=== PATIENT | male | born 1955 | race Caucasian/White ===

== ENCOUNTER 2018-07-15 19:08 | Emergency (ER) | payer OTHER ==
[~2018-07-15] VITALS: Ht 167.6 cm; Wt 117.1 kg
[~2018-07-15 19:08] MED LIST: CHOL20001 PO; FERR-15 PO; METF500T2 PO; RAMI5CAP1 PO; RANI-287 PO; [UNRECOGNIZED DRUG - CODE] PO
[2018-07-15 19:11] VITALS: BP 136/90
[2018-07-15] MEDS ORDERED: AMLO5TAB PO (19:18)
[2018-07-15] MEDS ORDERED: RAMI5CAP1 PO (19:18)
[2018-07-15] MEDS ORDERED: METPCK PO (19:18)
--- NOTE | 2018-07-15 19:33 | NUR ---
PT PRESNETS TO ED C/O FREQUENT URINATION, DYSURIA, AND LOWER BACK PAIN X 5 DAYS. SEEN PMD, ON KEFLEX SINCE TUESDAY WITH PERSISTING SYMPTOMS. NO BLADDER DISTENTION UPON ASSESSMENT. PT REPORTS ALLERGIES TO SULFA, MACROBID, LEVAQUIN, AND CIPRO AND REPORTS ONLY BEING ABLE TO TAKE KEFELX. PT PLACED IN BED. PENDING MD MONTGOMERY.
[2018-07-15 20:18] LABS: APPEARANCE,URINE CLEAR (CLEAR); BILIRUBIN,URINE NEGATIVE (NEGATIVE); BLOOD, URINE 2+ (NEGATIVE); COLOR,URINE YELLOW (YELLOW); LEUKOCYTE ESTERASE ,URINE NEGATIVE (NEGATIVE); NITRITE, URINE NEGATIVE (NEGATIVE); UGLUCOSE NEGATIVE (NEGATIVE)
[2018-07-15 20:22] LABS: RBC,URINE 3-10 (FEW) /HPF (0-5); WBC,URINE 0-5 (RARE) /HPF (0-5)
[2018-07-15] MEDS ORDERED: KETOROLAC 30 MG/ML VIAL IM ONE (20:50)
[2018-07-15] MEDS ORDERED: cefTRIAXone 1,000 MG in LIDOCAINE MPF 1% - 5 mL VIAL 2.1 ML IM ONE (20:50)
[2018-07-15] MEDS ORDERED: cefTRIAXone 1,000 MG VIAL ONE (20:57)
[2018-07-15] MEDS ORDERED: LIDOCAINE/EPI 1% 1:100000 20 ML VIAL INJ ONE (21:08)
[2018-07-15] MEDS ORDERED: LIDOCAINE MPF 1% - 5 mL VIAL 5 ML ONE (21:15)
[2018-07-15 21:35] VITALS: BP 132/87
--- NOTE | 2018-07-15 21:36 | NUR ---
Patient discharged with v/s stable. Written and verbal after care instructions given and explained. Patient verbalized understanding. Ambulatory with steady gait. All questions addressed prior to discharge. Advised to follow up with PMD.
== END 2018-07-15 21:35 | disposition home or self-care (01) ==
LOC: MED 19:08
DX: R35.0 Frequency of micturition (principal); M54.5 Low back pain; D72.829 Elevated white blood cell count, unspecified; E11.9 Type 2 diabetes mellitus without complications; I10 Essential (primary) hypertension; K21.9 Gastro-esophageal reflux disease without esophagitis; Z85.038 Personal history of other malignant neoplasm of large intestine; Z85.46 Personal history of malignant neoplasm of prostate; Z79.84 Long term (current) use of oral hypoglycemic drugs; Z79.899 Other long term (current) drug therapy
CPT/HCPCS: 81001; 82948; 87086; 96372; 99284; J0696; J1885; J2001

== ENCOUNTER 2018-07-20 18:29 | Emergency (ER) | payer OTHER ==
[~2018-07-20] VITALS: Ht 167.6 cm; Wt 83.9 kg
[~2018-07-20 18:29] MED LIST changes: +AMLO5TAB PO; -CHOL20001 PO; -FERR-15 PO; +METPCK PO; -RANI-287 PO; -[UNRECOGNIZED DRUG - CODE] PO
[2018-07-20 18:34] VITALS: BP 118/59
--- NOTE | 2018-07-20 18:45 | NUR ---
bib self with nasal congestion x 4 days. patient denies any cough, fevers, or throat pain. VSS; PATIENT POSITIONED FOR COMFORT; HOB ELEVATED; BEDRAILS UP X1; BED DOWN. ER MD MADE AWARE OF PT STATUS.
[2018-07-20] MEDS ORDERED: DEXAMETHASONE 10 MG/ML VIAL IM ONE (20:05)
[2018-07-20] MEDS ORDERED: cefTRIAXone 1,000 MG in LIDOCAINE MPF 1% - 5 mL VIAL 2.1 ML IM ONE (20:05)
[2018-07-20 20:34] VITALS: BP 118/59
--- NOTE | 2018-07-20 20:34 | NUR ---
Patient discharged with v/s stable. Written and verbal after care instructions given and explained. Patient alert, oriented and verbalized understanding of instructions. Ambulatory with steady gait. All questions addressed prior to discharge. ID band removed. Patient advised to follow up with PMD. Rx of Cefdinir and Mucinex given. Patient educated on indication of medication including possible reaction and side effects. Opportunity to ask questions provided and answered.
== END 2018-07-20 20:34 | disposition home or self-care (01) ==
LOC: MED 18:29
DX: R09.89 Other specified symptoms and signs involving the circulatory and respiratory systems (principal); E11.9 Type 2 diabetes mellitus without complications; K21.9 Gastro-esophageal reflux disease without esophagitis; I10 Essential (primary) hypertension; Z85.038 Personal history of other malignant neoplasm of large intestine; Z79.899 Other long term (current) drug therapy; Z85.46 Personal history of malignant neoplasm of prostate; Z79.84 Long term (current) use of oral hypoglycemic drugs
CPT/HCPCS: 96372; 99284; J0696; J1100; J2001

== ENCOUNTER 2018-07-27 14:10 | Emergency (ER) | payer OTHER ==
[~2018-07-27] VITALS: Ht 165.1 cm; Wt 114.8 kg
[2018-07-27 14:19] VITALS: BP 111/69
[2018-07-27] MEDS ORDERED: KETOROLAC 60 MG/2 ML VIAL IM ONE (16:25)
[2018-07-27 16:43] VITALS: BP 111/69
== END 2018-07-27 16:50 | disposition home or self-care (01) ==
LOC: MED 14:10
DX: J30.9 Allergic rhinitis, unspecified (principal); M54.9 Dorsalgia, unspecified; E11.9 Type 2 diabetes mellitus without complications; K21.9 Gastro-esophageal reflux disease without esophagitis; I10 Essential (primary) hypertension; Z85.46 Personal history of malignant neoplasm of prostate; Z85.038 Personal history of other malignant neoplasm of large intestine; Z88.2 Allergy status to sulfonamides; Z79.899 Other long term (current) drug therapy
CPT/HCPCS: 82948; 96372; 99283; J1885; 81002

== ENCOUNTER 2023-05-06 20:21 | Emergency (ER) | payer OTHER ==
[~2023-05-06] VITALS: Ht 170.2 cm; Wt 109.3 kg
[~2023-05-06 20:21] MED LIST changes: +METF-1139 PO; -METF500T2 PO; +RAMI5CAP PO; -RAMI5CAP1 PO
[2023-05-06 20:25] VITALS: BP 121/73; PULSE 78; RESP 17; TEMP 98.3; O2SAT 96
--- NOTE | 2023-05-06 20:28 | NUR ---
TO LOBBY A/W BED AMBULATORY
--- NOTE | 2023-05-06 21:19 | NUR ---
PT AMBULATED TO BED 12, CALL LIGHT W/IN REACH.
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
[2023-05-06 22:25] VITALS: BP 121/73; PULSE 78; RESP 17; TEMP 98.3; O2SAT 96
== END 2023-05-06 22:25 | disposition home or self-care (01) ==
LOC: MED 20:21
DX: S09.90XA Unspecified injury of head, initial encounter (principal); G93.0 Cerebral cysts; E11.9 Type 2 diabetes mellitus without complications; I10 Essential (primary) hypertension; K21.9 Gastro-esophageal reflux disease without esophagitis; Z85.038 Personal history of other malignant neoplasm of large intestine; Z85.46 Personal history of malignant neoplasm of prostate; Z79.899 Other long term (current) drug therapy; Z79.84 Long term (current) use of oral hypoglycemic drugs; W18.2XXA Fall in (into) shower or empty bathtub, initial encounter; Y93.89 Activity, other specified; Y92.89 Other specified places as the place of occurrence of the external cause; Y99.8 Other external cause status
CPT/HCPCS: 70450; 99284

== ENCOUNTER 2023-07-29 19:15 | Emergency (ER) | payer MEDICARE ==
[~2023-07-29] VITALS: Ht 170.2 cm; Wt 111.1 kg
[2023-07-29 19:25] VITALS: BP 141/82; PULSE 83; RESP 16; TEMP 97.6; O2SAT 96
[2023-07-29] MEDS ORDERED: LIDOCAINE 5% 1 EA PATCH TP ONE ×2 (20:15→21:24)
[2023-07-29] MEDS ORDERED: KETOROLAC 30 MG/ML VIAL IM ONE (20:15)
[2023-07-29] MEDS ORDERED: KETOROLAC 30 MG/ML VIAL ONE (21:22)
[2023-07-29] MEDS ORDERED: LID5T TP (21:46)
[2023-07-29] MEDS ORDERED: IBUP-2213 PO (21:46)
[2023-07-29] MEDS ORDERED: CYCL-711 PO (21:46)
[2023-07-29 22:01] VITALS: PULSE 62; RESP 16; TEMP 98.2; O2SAT 97
== END 2023-07-29 22:01 | disposition home or self-care (01) ==
LOC: MED 19:15
DX: S33.5XXA Sprain of ligaments of lumbar spine, initial encounter (principal); E11.9 Type 2 diabetes mellitus without complications; K21.9 Gastro-esophageal reflux disease without esophagitis; I10 Essential (primary) hypertension; Z79.899 Other long term (current) drug therapy; Z79.1 Long term (current) use of non-steroidal anti-inflammatories (NSAID); X58.XXXA Exposure to other specified factors, initial encounter; Y92.89 Other specified places as the place of occurrence of the external cause; Y93.89 Activity, other specified; Y99.8 Other external cause status
CPT/HCPCS: 96372; 99283; J1885

== ENCOUNTER 2023-10-17 13:05 | Emergency (ER) | payer MEDICARE ==
[~2023-10-17] VITALS: Ht 167.6 cm; Wt 99.8 kg
[~2023-10-17 13:05] MED LIST changes: +CYCL-711 PO; +IBUP-2213 PO; +LID5T TP
[2023-10-17 13:35] VITALS: BP 143/78; PULSE 83; RESP 20; TEMP 98; O2SAT 98
[2023-10-17 16:14] LABS: BASOPHILS % (AUTO) 0.4 % (0.0-2.0); EOSINOPHILS # (AUTO) 0.1 K/uL (0-0.4); EOSINOPHILS % (AUTO) 1.9 % (0.0-4.0); HEMOGLOBIN 12.7 g/dL (12.0-18.0); LYMPHOCYTES # (AUTO) 1.4 K/uL (2.0-11.5); MEAN CORPUSCULAR HEMOGLOBIN 28 pg (27-31); MEAN CORPUSCULAR HGB CONC 34 g/dL (33-37); MEAN CORPUSCULAR VOLUME 82.5 fL (80-94); MONOCYTES # (AUTO) 0.6 K/uL (0.8-1.0); MONOCYTES % (AUTO) 7.4 % (1.7-9.3); NEUTROPHILS # (AUTO) 5.7 K/uL (1.8-7.7); NEUTROPHILS % (AUTO) 72.3 % (42.2-75.2); PLATELET COUNT (AUTO) 227 K/uL (140-450); RED BLOOD CELL COUNT(AUTO) 4.61 MIL/uL (4.20-6.10); RED CELL DISTRIBUTION WIDTH 16.1 % (11.6-13.7); WHITE BLOOD COUNT (AUTO) 7.9 K/uL (4.8-10.8)
[2023-10-17 16:34] LABS: ALBUMIN 3.6 g/dL (3.4-5.0); ANION GAP 12.9 (8-16); CALCIUM 9.1 mg/dL (8.5-10.1); CREATININE 0.9 mg/dL (0.6-1.3); MAGNESIUM 1.8 mg/dL (1.8-2.4); POTASSIUM 3.9 mmol/L (3.5-5.1); TOTAL BILIRUBIN 0.4 mg/dL (0.0-1.0); TOTAL PROTEIN, SERUM 8.3 g/dL (6.4-8.2)
[2023-10-17 16:35] LABS: APPEARANCE,URINE CLEAR (CLEAR); BILIRUBIN,URINE NEGATIVE (NEGATIVE); BLOOD, URINE 1+ (NEGATIVE); COLOR,URINE YELLOW (YELLOW); LEUKOCYTE ESTERASE ,URINE NEGATIVE (NEGATIVE); NITRITE, URINE NEGATIVE (NEGATIVE); PROTEIN,URINE NEGATIVE (NEGATIVE); UGLUCOSE NEGATIVE (NEGATIVE); UROBILINOGEN,URINE 0.2 EU/dL (0.2 - 1)
[2023-10-17] MEDS ORDERED: METR-520 PO (18:52)
== END 2023-10-17 19:16 | disposition home or self-care (01) ==
LOC: MED 13:05
DX: K29.70 Gastritis, unspecified, without bleeding (principal); E11.9 Type 2 diabetes mellitus without complications; K21.9 Gastro-esophageal reflux disease without esophagitis; I10 Essential (primary) hypertension; Z98.890 Other specified postprocedural states; Z79.899 Other long term (current) drug therapy; Z79.1 Long term (current) use of non-steroidal anti-inflammatories (NSAID)
CPT/HCPCS: 36415; 80053; 81003; 83690; 83735; 85025; 93005; 99284

== ENCOUNTER 2023-12-20 15:40 | Emergency (ER) | payer MEDICARE ==
[~2023-12-20] VITALS: Ht 170.2 cm; Wt 109.8 kg
[~2023-12-20 15:40] MED LIST changes: +METR-520 PO
[2023-12-20 15:55] VITALS: BP 119/77; PULSE 74; RESP 18; TEMP 97.7; O2SAT 95
[2023-12-20 19:15] LABS: BASOPHILS % (AUTO) 0.4 % (0.0-2.0); EOSINOPHILS # (AUTO) 0.1 K/uL (0-0.4); EOSINOPHILS % (AUTO) 1.9 % (0.0-4.0); HEMATOCRIT 39.4 % (36-52); HEMOGLOBIN 13.3 g/dL (12.0-18.0); LYMPHOCYTES # (AUTO) 1.8 K/uL (2.0-11.5); LYMPHOCYTES % (AUTO) 25.3 % (20.5-51.1); MEAN CORPUSCULAR HEMOGLOBIN 27 pg (27-31); MEAN CORPUSCULAR HGB CONC 34 g/dL (33-37); MEAN CORPUSCULAR VOLUME 80.4 fL (80-94); MONOCYTES # (AUTO) 0.6 K/uL (0.8-1.0); NEUTROPHILS # (AUTO) 4.5 K/uL (1.8-7.7); NEUTROPHILS % (AUTO) 63.4 % (42.2-75.2); PLATELET COUNT (AUTO) 187 K/uL (140-450); RED CELL DISTRIBUTION WIDTH 15.1 % (11.6-13.7); WHITE BLOOD COUNT (AUTO) 7.1 K/uL (4.8-10.8)
[2023-12-20 19:33] LABS: ANION GAP 12.3 (8-16); CARBON DIOXIDE 25.6 mmol/L (21-32); CREATININE 0.8 mg/dL (0.6-1.3); POTASSIUM 3.9 mmol/L (3.5-5.1)
[2023-12-20 19:35] LABS: ALBUMIN 3.6 g/dL (3.4-5.0); BILIRUBIN,DIRECT 0.1 mg/dL (0.0-0.3); TOTAL BILIRUBIN 0.3 mg/dL (0.0-1.0); TOTAL PROTEIN, SERUM 6.8 g/dL (6.4-8.2)
[2023-12-20 19:40] LABS: APPEARANCE,URINE CLEAR (CLEAR); BILIRUBIN,URINE NEGATIVE (NEGATIVE); BLOOD, URINE TRACE-I (NEGATIVE); COLOR,URINE LT. YELLOW (YELLOW); LEUKOCYTE ESTERASE ,URINE NEGATIVE (NEGATIVE); NITRITE, URINE NEGATIVE (NEGATIVE); PROTEIN,URINE NEGATIVE (NEGATIVE); UGLUCOSE NEGATIVE (NEGATIVE); UROBILINOGEN,URINE 0.2 EU/dL (0.2 - 1)
[2023-12-20] MEDS ORDERED: KETOROLAC 30 MG/ML VIAL IVP ONE (20:10)
[2023-12-20] MEDS ORDERED: ACETAMINOPHEN EXTRA STRENGTH 500 MG TAB PO ONE (20:10)
[2023-12-20] MEDS ORDERED: OMEP20EC11 PO (20:42)
[2023-12-20 20:55] VITALS: BP 119/77; PULSE 74; RESP 18; TEMP 97.7; O2SAT 95
== END 2023-12-20 20:55 | disposition home or self-care (01) ==
LOC: MED 15:40
DX: K21.9 Gastro-esophageal reflux disease without esophagitis (principal); I11.9 Hypertensive heart disease without heart failure; E11.9 Type 2 diabetes mellitus without complications; Z79.899 Other long term (current) drug therapy; Z79.4 Long term (current) use of insulin
CPT/HCPCS: 36415; 80048; 80076; 81003; 83690; 85025; 99284